=== PATIENT | female | born 1965 | race Caucasian/White ===

== ENCOUNTER 2020-05-31 00:24 | Outpatient (CLI) | payer OTHER, SELFPAY ==
[2020-05-31 08:53] LABS: Abs Immature Grans 0.05 10^3/uL (0.0-0.06); Absolute Basophil Count 0.07 10^3/uL (0.0-0.2); Absolute Eosinophil Count 0.34 10^3/uL (0.0-0.7); Absolute Lymphocyte Count 1.96 10^3/uL (1.2-3.4); Absolute Monocyte Count 0.38 10^3/uL (0.1-0.8); Eosinophils % 4.8; HCT 38.6 % (36.0-46.0); HGB 12.8 g/dL (11.2-15.7); Immature Grans % 0.7; Lymphocytes % 27.6; MCH 29.4 pg (27.0-33.0); MCHC 33.2 % (32.0-36.0); MCV 88.7 fL (80-95); MPV 10.2 fL (8.0-11.0); Monocytes % 5.4; Neutrophils % 60.5; Nucleated RBC 0 %; Platelet Count 211 10^3/uL (130-400); RBC 4.35 10^6/uL (3.93-5.22); RDW 13.2 % (11.7-14.6); RDW-SD 42.5 fL
[2020-05-31 09:45] LABS: ALT 24 U/L (14-59); AST 17 U/L (15-37); Albumin 3.7 g/dL (3.4-5.0); Alkaline Phosphatase 68 U/L (46-116); Anion Gap 7.5 mmol/L (3-11); BUN 8 mg/dL (7-18); Bilirubin, Total 0.4 mg/dL (0.2-1.0); CO2 27.5 mmol/L (21.0-32.0); CREATININE 0.91 mg/dL (0.55-1.02); Calcium 8.7 mg/dL (8.5-10.1); Chloride 105 mmol/L (98-107); Glucose 105 mg/dL (74-106); Sodium 140 mmol/L (136-145)
[2020-06-03 16:31] LABS: Calculated LDL 89 mg/dL (<100); Cholesterol 191 mg/dL (<200); HDL Cholesterol 39 mg/dL (40-60); Triglyceride 316 mg/dL (<150)
[2020-06-03 16:32] LABS: Hemoglobin A1C 6.1 % (<5.7)
== END 2020-05-31 00:44 ==
PROVIDERS: PCP Nurse Practitioner Adult Health; Visit Provider Nurse Practitioner Family
DX: R73.03 Prediabetes (principal); E78.89 Other lipoprotein metabolism disorders; R05 Cough; R11.0 Nausea; R94.31 Abnormal electrocardiogram [ECG] [EKG]; Z82.49 Family history of ischemic heart disease and other diseases of the circulatory system; R07.89 Other chest pain; J02.9 Acute pharyngitis, unspecified
CPT/HCPCS: 36415; 80053; 80061; 83036; 85025

== ENCOUNTER 2020-05-31 01:08 | Outpatient (CLI) | payer OTHER, SELFPAY ==
--- NOTE | 2020-05-31 06:30 | DI.NM_ITS ---
APPROVED REPORT Exam: Pharmacologic Patient Location: Out-Patient Room/Bed: Stress Nurse: Dian Stephen RN BMI: 36.34 Baseline Rhythm: Sinus Rhythm Comment: occasional PVC Indications: Burning chest pain, abnormal EKG, and family h/o CAD. Medical History Medical History: Prediabetes. Cardiac Medications: None. Allergies: Morphine, Codeine, Hydrocodone, Oxycodone, Propoxyphene, Aspirin, Acetaminophen, ,Omeprazo le, Meperidine. Cardiac Risk Factors: FHX of CAD Previous Cardiac Procedures: None. Pretest Chest Pain Characteristics: No chest pain Exercise History: Sedentary, Indeterminate Physical Disabilities: Legs Lung Sounds: Clear to auscultation Heart Sounds: Regular Stress Test Details Test: Pharmacologic stress testing performed using 0.4 mg of regadenoson per 5 mL given IV over 10 s econds. Reason for pharmacologic stress test: physical limitation. Nuclear Acquisition: Rest Tc-99m/Stress Tc-99m 1 day Rest Isotope: Tc-99m Sestamibi. Dose: 12.8 Date: 05/31/2020 Injection Time: 0915 Stress Isotope: Tc-99m Sestamibi. Dose: 35.2 Date: 05/31/2020 Injection Time: 1105 HR Resting HR Supine: 75 bpm Max Heart Rate (APMHR): 164.102323 bpm Target HR (85% APMHR): 139.431944 bpm Max HR Achieved: 110 bpm % of APMHR: 67.07 Recovery HR: 81 bpm BP Resting BP Supine: 160/92 mmHg Max BP: 160/92 mmHg Recovery BP: 148/84 mmHg ECG Resting ECG: Sinus Rhythm Ectopy: occasional unifocal PVC Stress ECG: Sinus Tachycardia ST Change: no significant ST segment changes noted. Arrhythmia: PVCs, Trigeminy Recovery ECG: Sinus Rhythm Recovery ST Change: no significant ST segment changes noted. Recovery Arrhythmia: PVCs. Clinical Stress Symptoms: Dyspnea, Headache Stress ECG Conclusion 1. The resting electrocardiogram showed a borderline nonspecific interventricular conduction delay 2. This was a pharmacologic myocardial perfusion imaging study. Patient received regadenoson. Peak heart rate was 67% of predicted for age 3. Electrocardiographically the test was nondiagnostic due to inadequate heart rate 4. Sporadic premature ventricular contractions were seen Stress Test Summary STAGE HR BP Symptoms NOTES Supine 75 160/92 1 min post Lexiscan injection 105 154/82 SOB, BRAND 3 min post Lexiscan injection 100 150/80 BRAND 6 min post Lexiscan injection 81 148/84 No symptoms MPI Conclusion No evidence of myocardial ischemia or prior infarction Radiologist Interpretation Radiologist Interpretation by: Cristino Mi MD Interpretation Date/Time: 06/01/2020 16:04:50
--- NOTE | 2020-05-31 08:51 | DI.RAD_ITS ---
EXAM: XR CHEST 2V PA LATERAL CLINICAL HISTORY: BURNING CHEST PAIN,SORE THROAT,FAMILY H/O CAD,COUGH,R05,R07.89 TECHNIQUE: 2D digital imaging was performed. COMPARISON: No exams were available for comparison FINDINGS: MEDIASTINUM: Normal. HEART: Normal. PULMONARY VASCULATURE: Normal. LUNGS: Clear. PLEURAL SPACE: No pleural effusion or pneumothorax. BONE:Within normal limits for the patient's age. OTHER FINDINGS:Normal. IMPRESSION: No acute pulmonary findings. DATA REPOSITORY: RADIATION DOSE DELIVERED:
[2020-05-31] MEDS: Regadenoson 0.4 MG/5 ML SYR IVP (11:14)
== END 2020-05-31 01:28 ==
PROVIDERS: PCP Nurse Practitioner Adult Health; Visit Provider Nurse Practitioner Family
DX: J02.9 Acute pharyngitis, unspecified (principal); R05 Cough; R07.89 Other chest pain; Z82.49 Family history of ischemic heart disease and other diseases of the circulatory system; R94.31 Abnormal electrocardiogram [ECG] [EKG]
CPT/HCPCS: 78452; 93016; 93018; 71046; 93017; J2785

== ENCOUNTER → 2020-06-27 15:11 | Outpatient (REF) | payer OTHER, SELFPAY ==
--- NOTE | 2020-06-27 13:30 | PAPFT_PTH ---
PATIENT: Shima Ewing LOC: [facility] U#:[id number] AGE/SX: 60/F ROOM: RE06/27/[address]: Evelyn Anton APRN : 1965 BED: DIS: SPEC #: [id number] RECD: 06/27/20 18:29 STATUS: JENARO BURLESON #: [id number] ERNESTO: 06/27/20 13:[address]: Evelyn Anton DEPT: [facility] Cytology RECD BY: Yasmeen Hall Tissues: 1 - CX/ENDOCX FOR PAP SMEARS Procedures: PAP THIN PREP/UVM Screening HPV DNA PROBE Comments: [id number]
== END ==
LOC: LBN 15:11
PROVIDERS: PCP Nurse Practitioner Adult Health; Visit Provider Nurse Practitioner Adult Health
DX: Z12.4 Encounter for screening for malignant neoplasm of cervix (principal); Z11.51 Encounter for screening for human papillomavirus (HPV)
CPT/HCPCS: 88142; 87624

== ENCOUNTER 2021-07-12 01:39 | Outpatient (CLI) | payer MEDICARE, MEDICAID, SELFPAY ==
--- NOTE | 2021-07-12 08:15 | DI.MAMMO_ITS ---
Exam(s) MAMMO SCREENING EXAM: MAMMO SCREENING CLINICAL HISTORY: screening,z12.39 TECHNIQUE: Bilateral full field digital CC and MLO mammographic images were obtained with 3D tomosyn thesis and utilizing computer aided detection (CAD). COMPARISON: Available for comparison. FINDINGS: Masses/Architectural Distortion: None seen. Microcalcifications: No suspicious pleomorphic-type are seen. Skin Thickening/Nipple Retraction: None. There is increased density in the axillary tail region of the left breast on the MLO view. This view should be repeated. IMPRESSION: 1. There is an overall increased density in the axillary tail region of the left breast. 2. The left MLO view should be repeated. BI-RADS Category 0 - Assessment Incomplete: Need additional imaging evaluation Breast Density - Category B - Scattered areas of fibroglandular density Breast density category C or D implies that the patient has dense breast tissue. Dense breast tissue is very common and is not abnormal but dense breast tissue can make it harder to find cancer on a ma mmogram. Also, dense breast tissue may increase their breast cancer risk. This information about the result of the mammogram report was provided to the patient to raise their awareness. Use this report when you speak with the patient about their risks for breast cancer, which includes their family hist ory. At that time, you may recommend for more screening tests (Ultrasound or MRI) as they might be us eful based on their risk. A negative radiographic report should not delay biopsy if a dominant or clinically suspicious mass is present. Up to ten percent of cancers are not identified on mammography. A negative report may reinforce clinical impression. Adenosis and dense breasts may obscure an underlying neoplasm. False positive reports average 6 to 10%. Patient will receive a letter notifying them of these results.
== END 2021-07-12 01:59 ==
PROVIDERS: PCP Nurse Practitioner Adult Health; Visit Provider Nurse Practitioner Adult Health
DX: Z12.31 Encounter for screening mammogram for malignant neoplasm of breast (principal); R92.8 Other abnormal and inconclusive findings on diagnostic imaging of breast
CPT/HCPCS: 77063; 77067

== ENCOUNTER 2021-07-12 02:56 | Outpatient (CLI) | payer MEDICARE, MEDICAID, SELFPAY ==
[2021-07-12 14:27] LABS: Hemoglobin A1C 6.3 % (<5.7)
[2021-07-12 15:34] LABS: ALT 26 U/L (14-59); AST 15 U/L (15-37); Albumin 3.6 g/dL (3.4-5.0); Alkaline Phosphatase 65 U/L (46-116); Anion Gap 7.7 mmol/L (3-11); BUN 10 mg/dL (7-18); Bilirubin, Total 0.3 mg/dL (0.2-1.0); CO2 27.3 mmol/L (21.0-32.0); CREATININE 0.8 mg/dL (0.55-1.02); Calcium 8.5 mg/dL (8.5-10.1); Calculated LDL 107 mg/dL (<100); Chloride 106 mmol/L (98-107); Cholesterol 184 mg/dL (<200); Glucose 96 mg/dL (74-106); HDL Cholesterol 47 mg/dL (40-60); Sodium 141 mmol/L (136-145); TSH (W/Ref FT4) 3.36 uIU/mL (0.36-3.74); Total Protein 6.9 g/dL (6.4-8.2); Triglyceride 150 mg/dL (<150)
== END 2021-07-12 02:57 | disposition home or self-care (01) ==
LOC: LBO 02:56
PROVIDERS: PCP Nurse Practitioner Adult Health; Visit Provider Nurse Practitioner Adult Health
DX: R73.03 Prediabetes (principal); E78.1 Pure hyperglyceridemia; E66.9 Obesity, unspecified
CPT/HCPCS: 36415; 80053; 80061; 83036; 84443

== ENCOUNTER 2021-07-17 21:15 | Outpatient (REF) | payer MEDICARE, MEDICAID, SELFPAY ==
[2021-07-17 22:15] LABS: C-Reactive Protein 0.39 mg/dL (0.0-0.3)
== END 2021-07-17 21:16 | disposition home or self-care (01) ==
LOC: LBN 21:15
PROVIDERS: PCP Nurse Practitioner Adult Health; Visit Provider Family Medicine
DX: M25.473 Effusion, unspecified ankle (principal)
CPT/HCPCS: 86140

== ENCOUNTER 2022-07-31 10:13 | Emergency (ER) | payer MEDICARE, SELFPAY ==
--- NOTE | 2022-07-31 10:15 | DI.RAD_ITS ---
Exam(s) XR SHOULDER RT COMPLETE 2+V EXAM: XR SHOULDER RT COMPLETE 2+V CLINICAL HISTORY: Fall, R/O Fracture. TECHNIQUE: 2D digital imaging was performed of the right shoulder. Five images were obtained. AP, Grashey, Y-view and axillary views were obtained. COMPARISON: CR XR CHEST 2V PA LATERAL from 05/31/2020 FINDINGS: BONES: No acute fracture is present. No bony destructive lesion is seen. JOINTS: No dislocation present. Degenerative changes are seen at the acromioclavicular joint. SOFT TISSUE: Normal. IMPRESSION: No acute fracture or dislocation. DATA REPOSITORY: RADIATION DOSE DELIVERED:
--- NOTE | 2022-07-31 10:15 | DI.RAD_ITS ---
Exam(s) XR HUMERUS RT EXAM: XR HUMERUS RT CLINICAL HISTORY: Fall, R/O Fracture. TECHNIQUE: 2D digital imaging was performed of the right humerus. Three images were obtained. AP a nd lateral views were obtained. COMPARISON: No exams were available for comparison FINDINGS: BONES: No acute fracture is present. No bony destructive lesion is seen. Visualized portion of elbow and shoulder joints are unremarkable. SOFT TISSUE: Normal. IMPRESSION: No acute fracture or dislocation. DATA REPOSITORY: RADIATION DOSE DELIVERED:
[2022-07-31 10:17] VITALS: BP 142/105; PULSE 65; RESP 18; TEMP 37.1; O2SAT 98
--- NOTE | 2022-07-31 10:27 | W.ED.GENAD ---
Discharge Plan Disposition Patient Disposition: Home Condition: Stable Discharge Details Clinical Impression: Sprain of right upper arm Primary Care Provider: Evelyn Anton ED Provider: Juana Reyna Home Meds and New Rx's Prescriptions: Continued metronidazole [Metrogel] 1 % gel 1 applic topical DAILY PRN (Reason: rosacea) Qty: 60 0RF Rx Instructions: Best to use daily x8-9weeks, then stop, repeat PRN for papular rosacea. famotidine 20 mg tablet 20 mg PO DAILY PRN (Reason: heartburn) Qty: 90 3RF Rx Instructions: Heartburn PRN (DME) Blood Glucose Test Strip See Rx Instructions .MEDSUPPLY Qty: 100 3RF Rx Instructions: As directed to check blood glucose daily. No insulin. Dispense covered brand. (DME) blood-glucose meter Misc See Rx Instructions .MEDSUPPLY Qty: 1 0RF Rx Instructions: As directed to check blood glucose daily. No insulin. Dispense covered brand. (DME) lancets Misc See Rx Instructions .MEDSUPPLY Qty: 100 3RF Rx Instructions: As directed to check blood glucose daily. No insulin. Dispense covered brand. pregabalin [Lyrica] 25 mg capsule See Rx Instructions PO HS MDD 75mg/24h Qty: 90 3RF Rx Instructions: 25mg HS nightly, but may take up to 25mg TID PRN LLE peripheral neuropathy orally Excedrin Migraine 250-250-65 mg tablet See Rx Instructions PO ONCE Rx Instructions: TAKE 2 TABLETS IN A 24 HR PERIOD FOR MIGRAINE BRAND'S acetaminophen [Tylenol Extra Strength] 500 mg tablet 1,000 mg PO Q8H PRN cholecalciferol (vitamin D3) 1,000 UNITS tablet 2,000 units PO Discharge Instructions Instructions: Shoulder Sprain (ED) Additional Instructions: At this time x-ray showed no evidence of fracture or dislocation. Please wear the sling as needed for over the next few days for comfort. Please do take the sling off and do some light stretches as tolerated. Rest, ice, compression, elevation. Please take Tylenol or Ibuprofen with food every 4-6 hours as needed for pain and swelling. Follow up with primary care provider in 3-5 days. Return to ED sooner if any worsening or concerns. Increase oral fluids. Referrals: MacEvelyn Medina NP [Primary Care Provider] - 1 week Discharge Data Discharge Date/Time-TO BE ENTERED AT DEPARTURE: 07/31/22 12:03 Medical Decision Making X-ray right shoulder and humerus ordered. I did offer patient some she refused at this time. X-ray shoulder and humerus show no acute fracture dislocation or some degenerative changes noted in the shoulder. Patient given a sling and instructed on home care verbalized understanding. This text was generated using iCenteraation system, please disregard any oddities of phrase or misspellings. Imaging Data Radiologic Study: Imaging: X-Ray Radiologist's impression: EXAM:? XR HUMERUS RT CLINICAL HISTORY: ? Fall, R/O Fracture.? TECHNIQUE:? 2D digital imaging was performed of the right humerus.? Three images were obtained.? AP and lateral views were obtained. COMPARISON:? No exams were available for comparison FINDINGS: BONES: No acute fracture is present. No bony destructive lesion is seen. Visualized portion of elbow and shoulder joints are unremarkable. SOFT TISSUE: Normal. IMPRESSION: No acute fracture or dislocation.? HPI General Mode of arrival: ambulatory. Date/Time Provider Initiated Documentation: 07/31/22 10:15. Limitations to Documentation: no limitations. Information obtained by: patient, RN notes reviewed and old records reviewed. HPI Narrative: 57-year-old female presents to the ER with chief complaint of right shoulder and right upper arm pain status post a mechanical fall yesterday. Patient reports that she tripped falling onto her right side. She denies any neck pain or head injury no loss of consciousness. She reports that she took some Tylenol last night which provided little to no relief. No obvious deformity or swelling noted distal pulses CMS is intact. Denies any elbow pain or wrist pain. No other associated symptoms or injuries noted. Past medical history includes migraines, heartburn, insomnia. Related Data Home Medications Medication Instructions Recorded Confirmed cholecalciferol (vitamin D3) 25 2,000 units PO 12/31/12 07/20/22 mcg (1,000 unit) tablet acetaminophen 500 mg tablet 1,000 mg PO Q8H PRN 04/18/20 07/31/22 (Tylenol Extra Strength) [id number] 250 See Rx Instructions PO ONCE 04/18/20 07/31/22 mg-250 mg-65 mg tablet (Excedrin Migraine) metronidazole 1 % topical gel 1 applic topical DAILY PRN rosacea 07/03/21 07/31/22 (Metrogel) #60 grams blood sugar diagnostic (Blood #100 ea 10/27/21 07/20/22 Glucose Test strips) blood-glucose meter #1 ea 10/27/21 07/20/22 famotidine 20 mg tablet 20 mg PO DAILY PRN heartburn #90 10/27/21 07/20/22 tabs lancets #100 ea 10/27/21 07/20/22 pregabalin 25 mg capsule (Lyrica) See Rx Instructions PO HS LLE 02/23/22 07/31/22 peripheral neuropathy #90 caps Previous Rx's Medication Instructions Recorded metronidazole 1 % topical gel 1 applic topical DAILY PRN rosacea 07/03/21 (Metrogel) #60 grams blood sugar diagnostic (Blood #100 ea 10/27/21 Glucose Test strips) blood-glucose meter #1 ea 10/27/21 famotidine 20 mg tablet 20 mg PO DAILY PRN heartburn #90 10/27/21 tabs lancets #100 ea 10/27/21 pregabalin 25 mg capsule (Lyrica) See Rx Instructions PO HS LLE 02/23/22 peripheral neuropathy #90 caps Allergies Allergy/AdvReac Type Severity Reaction Status Date / Time acetaminophen [From Roxicet] AdvReac Panic Verified 07/31/22 11:16 Attacks aspirin [From Percodan] AdvReac Nausea/Vomi Verified 07/31/22 11:16 ting codeine AdvReac Nausea/Vomi Verified 07/31/22 11:16 ting hydrocodone AdvReac Nausea/Vomi Verified 07/31/22 11:16 ting meperidine [From Demerol] AdvReac Nausea/Vomi Verified 07/31/22 11:16 ting morphine AdvReac Nausea/Vomi Verified 07/31/22 11:16 ting omeprazole [From Prilosec] AdvReac Nausea Verified 07/31/22 11:16 oxycodone [From Roxicet] AdvReac Panic Verified 07/31/22 11:16 Attacks propoxyphene AdvReac Nausea/Vomi Verified 07/31/22 11:16 [From Darvocet-N] ting General Stated Complaint: Orthopedic BERTRAND: 4 Review of Systems All systems reviewed & are unremarkable except as noted in HPI and below ENT Ears, Nose, Mouth, and Throat: Denies neck pain Musculoskeletal Musculoskeletal: Reports as per HPI, Denies abnormal gait, Denies back pain, Reports arthralgias, Reports limited range of motion, Denies loss of height and Denies neck pain Neurologic Neurologic: Denies abnormal gait [facility] All Active Problems (Updated 07/31/22 @ 11:47 by Juana Reyna NP) Sprain of right upper arm (Acute) Acne rosacea, papular type (Chronic) RX Metrogel--effective IBS (irritable bowel syndrome) (Chronic) diarrhea predominant; self-manages with food Post-traumatic stress disorder, unspecified (Chronic) [facility] [place] counselor Obesity (Chronic) Hypertriglyceridemia (Chronic) Peripheral neuropathy (Chronic) LLE s/p 2009 (knee replacement), 2011, 2012 femur fracture; Lyrica 05/2020 very effective Prediabetes (Chronic) 6.3% 06/2021. 6.1%, 05/2020 Medical History Bright red rectal bleeding Stable CBC; hemoccult cards x3 NEG 2014 normal colonscopy Fracture, radius (~2006) Grief reaction , Cristino, 10/2017 Heartburn H2 abi History of femur fracture (~2012) Left, Pinned and Plated (02/2013) Insomnia Migraine Excedrin Migraine Right knee pain [facility] (s/p L knee issues with them remotely & they manage) Surgical History History of bilateral oophorectomy 1992, 1994 History of cholecystectomy (~2004) History of elbow surgery (~2000) Tennis Elbow History of knee replacement Left Knee (2010), Replaced again 11/2011 Family History Father Substance abuse Sister Substance abuse Anxiety Depression Mother Diabetes Heart disease Hypertension Sister No problems noted. Social History Smoking/Tobacco Use Status: Never Smoking risk assessment performed?: Yes Alcohol Intake: current Alcohol Intake frequency: holidays/special occasions only Drug use: Never Substance use type: does not use Adopted: No Caregiver/Support person: No Foster care: No Household members: significant other Housing: house Number of Children: 0 Communication Needs: None Education Level: high school Details: graduated Do you need help understanding health information?: Rarely current occupation: disabled Pets and animals: Yes Pets and animals: dog(s) Sexually active: No Do you think of yourself as: straight/heterosexual Current gender identity: female What is your relationship status?: living with partner How often do you talk on the phone with friends or family?: once per week How often do you get together with friends or relatives?: never How often do you attend jainism or anglican services?: 1-3 times per year Do you belong to any clubs or organized social groups?: no Panel score (0-1 are the most socially isolated patients): 1 What type of physical activity do you participate in: none and walking Duration: 30-45 minutes/day Frequency: 3-4 times per week Sravani/Evangelical: Baptist Special sravani needs: No Seatbelt use: always Helmet use: Yes Drive intox or ride w/intox school bus driver/mechanic: No Do you feel safe at home: Yes Do you feel safe in your relationship?: Yes Exam Narrative Exam Narrative: General: Well Developed, Awake and Alert, conversant. Skin: Warm and Dry HEENT: Head: No palpable deformities, Normocephalic Eyes: Pupils PERRLA, EOM's intact. No periorbital eccymosis or step off Ears: Canal patent. Tympanic membranes are clear . No segovia's sign, no hemptympanum. Nose/Face: Atraumatic. Facial bones nontender to palpation and stable with manipulation. Mouth/Throat: No intraoral trauma. Teeth and mandible are intact. Neck: No midline tenderness, no step off, no deformity to palpation of C-spine. Trachea midline. Chest: No surface trauma. Nontender without crepitus or deformity. Lungs clear to ausculatation bilaterally. Heart: RRR, no rubs, murmurs or gallop. Abdomen: No abrasions, ecchymosis, or surface trauma. Nondistended. Nontender to palpation no guarding, rebound, or rigidity. Pelvis: Nontender to palpation and stable to compression. Femoral pulses strong and equal Extremities: no surface trauma. Sensation intact. Peripheral pulses intact and equal. Tenderness with palpation to right anterior humerus and distal humerus. No obvious deformity. Neuro: ANO x4, GCS 15, cranial nerves II through XII intact. Motor and sensory exam nonfocal. Reflexes are symmetric. Course Vital Signs Vital signs: Vital Signs Temperature 37.1 C 07/31/22 10:17 Pulse 65 07/31/22 10:17 Respiratory Rate 18 07/31/22 10:17 Blood Pressure 142/105 H 07/31/22 10:17 Pulse Oximetry 98 07/31/22 10:17 Temperature 37.1 C 07/31/22 10:17 Temperature Source Temporal Artery Scan 07/31/22 10:17 Pulse 65 07/31/22 10:17 Respiratory Rate 18 07/31/22 10:17 Blood Pressure 142/105 H 07/31/22 10:17 Blood Pressure Position Sitting 07/31/22 10:17 Pulse Oximetry 98 07/31/22 10:17 Oxygen Delivery Method Room Air 07/31/22 10:17 Oxygen Flow Rate 0 07/31/22 10:17 Pain Level 6 07/31/22 10:17
[2022-07-31 12:01] VITALS: BP 131/78; PULSE 60; RESP 16; TEMP 36.5; O2SAT 99
--- NOTE | 2022-08-01 07:48 | NUR.NOTE ---
Nursing Note: Accessed chart for [facility] billing purposes.
== END 2022-07-31 12:03 | disposition home or self-care (01) ==
PROVIDERS: Emergency Provider Registered Nurse Emergency; PCP Nurse Practitioner Adult Health
DX: S43.401A Unspecified sprain of right shoulder joint, initial encounter (principal); Z79.82 Long term (current) use of aspirin; W01.0XXA Fall on same level from slipping, tripping and stumbling without subsequent striking against object, initial encounter
CPT/HCPCS: 99284; 73030; 73060; 99282

== ENCOUNTER 2022-08-17 01:22 | Outpatient (CLI) | payer MEDICARE, SELFPAY ==
[2022-08-17 09:56] LABS: Anion Gap 6.3 mmol/L (3-11); BUN 21 mg/dL (7-18); CO2 28.7 mmol/L (21.0-32.0); CREATININE 0.8 mg/dL (0.55-1.02); Calcium 9.2 mg/dL (8.5-10.1); Calculated LDL 91 mg/dL (<100); Chloride 105 mmol/L (98-107); Cholesterol 158 mg/dL (<200); Estimated GFR 85.35 (mL/min/1.73m2); Glucose 103 mg/dL (74-106); HDL Cholesterol 54 mg/dL (40-60); Potassium 3.9 mmol/L (3.5-5.1); Sodium 140 mmol/L (136-145); Triglyceride 69 mg/dL (<150)
== END 2022-08-17 01:23 | disposition home or self-care (01) ==
LOC: LBO 01:22
PROVIDERS: PCP Nurse Practitioner Adult Health; Visit Provider Nurse Practitioner Adult Health
DX: E78.1 Pure hyperglyceridemia (principal); R73.03 Prediabetes; E66.09 Other obesity due to excess calories; Z68.37 Body mass index [BMI] 37.0-37.9, adult
CPT/HCPCS: 36415; 80048; 80061

== ENCOUNTER 2022-08-21 01:31 | Outpatient (CLI) | payer MEDICARE, SELFPAY ==
--- NOTE | 2022-08-21 07:45 | DI.MAMMO_ITS ---
Exam(s) MAMMO SCREENING EXAM: MAMMO SCREENING CLINICAL HISTORY: screening,z12.39 TECHNIQUE: Bilateral full field digital CC and MLO mammographic images were obtained with 3D tomosyn thesis and utilizing computer aided detection (CAD). COMPARISON: Available for comparison. FINDINGS: Masses/Architectural Distortion: None seen. Microcalcifications: No suspicious pleomorphic-type are seen. Skin Thickening/Nipple Retraction: None. IMPRESSION: 1. No significant interval change with no specific features of malignancy noted. 2. Unless there is more urgent need, screening mammography is recommended, as per [place] [employer] guidelines. BI-RADS Category 1 - Negative Breast Density - Category B - Scattered areas of fibroglandular density Breast density category C or D implies that the patient has dense breast tissue. Dense breast tissue is very common and is not abnormal but dense breast tissue can make it harder to find cancer on a ma mmogram. Also, dense breast tissue may increase their breast cancer risk. This information about the result of the mammogram report was provided to the patient to raise their awareness. Use this report when you speak with the patient about their risks for breast cancer, which includes their family hist ory. At that time, you may recommend for more screening tests (Ultrasound or MRI) as they might be us eful based on their risk. A negative radiographic report should not delay biopsy if a dominant or clinically suspicious mass is present. Up to ten percent of cancers are not identified on mammography. A negative report may reinforce clinical impression. Adenosis and dense breasts may obscure an underlying neoplasm. False positive reports average 6 to 10%. Patient will receive a letter notifying them of these results.
== END 2022-08-21 01:51 ==
LOC: DI 01:31
PROVIDERS: PCP Nurse Practitioner Adult Health; Visit Provider Nurse Practitioner Adult Health
DX: Z12.31 Encounter for screening mammogram for malignant neoplasm of breast (principal)
CPT/HCPCS: 77063; 77067

== ENCOUNTER 2023-01-21 14:52 | Outpatient (CLI) | payer MEDICARE, SELFPAY ==
--- NOTE | 2023-01-21 14:45 | RT.EKG_ITS ---
APPROVED REPORT Exam: Resting ECG Reason for Exam: a-fib Patient Location: O HR:101 bpm ECG Measurements Heart Rate 101 AXIS HI [id number] P [id number] QRSd 128 QRS 12 QT 410 T 48 QTc 532 Conclusion Atrial flutter...A-rate 288 Ventricular premature complex...V complex w/ short R-R interval Nonspecific intraventricular conduction delay...QRSd >115mS, not LBBB/RBBB Minimal ST elevation, inferior leads...ST >0.06mV, II III aVF
== END 2023-01-21 14:53 | disposition home or self-care (01) ==
PROVIDERS: PCP Nurse Practitioner Adult Health; Visit Provider Emergency Medicine
DX: I48.91 Unspecified atrial fibrillation (principal); Z82.49 Family history of ischemic heart disease and other diseases of the circulatory system
CPT/HCPCS: 93010

== ENCOUNTER 2023-04-25 16:25 | Emergency (ER) | payer MEDICARE, SELFPAY ==
[2023-04-25 16:33] VITALS: BP 168/74; PULSE 61; RESP 18; TEMP 37
--- NOTE | 2023-04-25 16:58 | W.ED.GENAD ---
Discharge Plan Disposition Patient Disposition: Home Condition: Stable Discharge Details Clinical Impression: Biliary colic Primary Care Provider: Evelyn Anton ED Provider: Juana Reyna Home Meds and New Rx's Prescriptions: Continued metronidazole [Metrogel] 1 % gel 1 applic topical DAILY PRN (Reason: rosacea) Qty: 60 0RF Rx Instructions: Best to use daily x8-9weeks, then stop, repeat PRN for papular rosacea. famotidine 20 mg tablet 20 mg PO DAILY PRN (Reason: heartburn) Qty: 90 3RF Rx Instructions: Heartburn PRN (DME) Blood Glucose Test Strip See Rx Instructions .MEDSUPPLY Qty: 100 3RF Rx Instructions: As directed to check blood glucose daily. No insulin. Dispense covered brand. (DME) blood-glucose meter Misc See Rx Instructions .MEDSUPPLY Qty: 1 0RF Rx Instructions: As directed to check blood glucose daily. No insulin. Dispense covered brand. (DME) lancets Misc See Rx Instructions .MEDSUPPLY Qty: 100 3RF Rx Instructions: As directed to check blood glucose daily. No insulin. Dispense covered brand. Joint X One (hyaluronic acid) PO DAILY Patient Comments: Joint pain, neuropathy diltiazem HCl [Cartia XT] 240 mg capsule,extended release 24hr 240 mg PO QAM Qty: 90 2RF Excedrin Migraine 250-250-65 mg tablet See Rx Instructions PO ONCE Rx Instructions: TAKE 2 TABLETS IN A 24 HR PERIOD FOR MIGRAINE BRAND'S acetaminophen [Tylenol Extra Strength] 500 mg tablet 1,000 mg PO Q8H PRN cholecalciferol (vitamin D3) 25 mcg (1,000 unit) tablet 3,000 unit PO DAILY Discharge Instructions Instructions: Abdominal Pain (ED) Additional Instructions: At this time no acute abnormality identified. The common bile duct was slightly dialated. Practice a bland diet. Please stay away from anything fried, fatty, or dairy. Follow up with primary care provider in 3-5 days. Return to ED sooner if any worsening or concerns. Increase oral fluids. Please take Tylenol or Ibuprofen with food every 4-6 hours as needed for pain and swelling. Take the nausea medication as directed. Referrals: Evelyn Anton, [employer] CURATOR [Primary Care Provider] - 3 days Medical Decision Making 57-year-old female presents to the ER with a chief complaint of upper back pain which radiates into the front midepigastric area which began on Saturday. It is intermittent and waxes and wanes. Associated with nausea and diaphoresis and clamminess. She reports that she woke it 2 AM on Saturday morning and then again yesterday morning and this morning around 5 AM. She reports feeling nauseated all day. She denies any dysuria or problems urinating. Denies any chest pain. She does have a past medical history of some rectal bleeding, heartburn insomnia migraine surgical history includes oophorectomy bilaterally, cholecystectomy. Work-up ordered including CBC CMP troponin EKG lipase and urinalysis. CT abdomen pelvis shows no acute abnormality identified does have a dilated common bile duct. Labs are noted below. We will have patient follow-up with PCP and GI if needed. Discussed work-up results with patient who verbalized understanding. This text was generated using [employer] system, please disregard any oddities of phrase or misspellings. Imaging Data Radiologic Study: Imaging: CT Scan Radiologist's impression: EXAM: CT ABDOMEN PELVIS W CLINICAL HISTORY: Midepigastric pain, nausea. TECHNIQUE: Imaging Protocol: Axial computed tomography images with coronal and sagittal reformatted images were created and reviewed CONTRAST MATERIAL: Intravenous: Omnipaque 350 Contrast volume:100 ml Oral: yes COMPARISON: CT,NM,TMT NM MPI REST STRESS GRP from 05/31/2020 FINDINGS: ABDOMEN: Lung Bases: Normal where visualized. Liver: Normal density. No measurable mass. Gallbladder and biliary tract: Status post cholecystectomy. No radiodense calculus. Dilatation of the common bile duct and intrahepatic ducts with tapering into the pancreatic head. Findings are likely post cholecystectomy reservoir fact. Pancreas: Normal density, no abnormal calcifications or inflammatory process. Spleen: Normal. Kidneys: Normal size, contour and axis. No radiodense stones or obstructive uropathy. No suspicious masses seen. Adrenal glands: No masses seen. Vasculature: Abdominal aorta non-dilated. Soft tissues: Unremarkable. PELVIS: Bladder: Nearly empty. Not well evaluated. Bowel: None moderate to increased quantity of stool throughout the colon. No obstruction. No bowel wall thickening. Appendix normal. Peritoneal cavity: No ascites, collection or mesenteric inflammatory response. Bones: Unremarkable for age. Reproductive organs: Uterus deviated to right. Lymph nodes: Unremarkable. IMPRESSION:: Status post cholecystectomy. Dilatation of the common bile duct and and mild intrahepatic biliary dilatation likely secondary to prior cholecystectomy. No acute abnormality identified. Lab Data Lab results reviewed: Yes I reviewed the patient's lab results. Labs: 04/25/23 18:00 Urine - Reflex from Ua Urine Culture - Pending Laboratory Tests Range/Units 04/25/23 04/25/23 04/25/23 17:09 17:09 18:00 WBC (4.4-10.8) 10^3/uL 7.23 RBC (3.93-5.22) 10^6/uL 4.45 Hgb (11.2-15.7) g/dL 12.7 Hct (36.0-46.0) % 38.6 MCV (80-95) fL 87 MCH (27.0-33.0) pg 28.5 MCHC (32.0-36.0) % 32.9 RDW (11.7-14.6) % 13.2 Plt Count (130-400) 10^3/uL 216 MPV (8.0-11.0) fL 10.2 Immature Gran % 0.6 Neutrophils % 61.9 Lymphocytes % 26.1 Monocytes % 7.1 Eosinophils % 3.3 Basophils % 1.0 Nucleated RBC % (0.0-0.3) % 0.0 Absolute Neutrophils (1.2-6.7) 10^3/uL 4.48 Absolute Lymphocytes (1.2-3.4) 10^3/uL 1.89 Absolute Monocytes (0.1-0.8) 10^3/uL 0.51 Absolute Eosinophils (0.0-0.7) 10^3/uL 0.24 Absolute Basophils (0.0-0.2) 10^3/uL 0.07 Sodium (136-145) mmol/L 138 Potassium (3.5-5.1) mmol/L 3.5 Chloride (98-107) mmol/L 102 Carbon Dioxide (21.0-32.0) mmol/L 27.1 Anion Gap (3-11) mmol/L 8.9 BUN (7-18) mg/dL 12 Creatinine (0.55-1.02) mg/dL 0.7 Est GFR (CKD-EPI 2020) (mL/min/1.73m2) 100.19 Glucose (74-106) mg/dL 95 Calcium (8.5-10.1) mg/dL 9.3 Magnesium (1.8-2.4) mg/dL 1.9 Total Bilirubin (0.2-1.0) mg/dL 0.5 AST (15-37) U/L 46 H ALT (14-59) U/L 55 Alkaline Phosphatase (46-116) U/L 97 Troponin I (<or=60) ng/L < 50 Total Protein (6.4-8.2) g/dL 8.1 Albumin (3.4-5.0) g/dL 3.7 Lipase (16-77) U/L 33 Urine Color (Yellow) Yellow Urine Clarity (Clear) Clear Urine pH (5-8) 6.0 Ur Specific [place] (1.005-1.025) 1.015 Urine Protein (Negative) mg/dL Negative Urine Ketones (Negative) mg/dL Negative Urine Blood (Negative) Trace-lysed H Urine Nitrite (Negative) Negative Urine Bilirubin (Negative) Negative Urine Urobilinogen (Up to 0.2) mg/dL 0.2 Ur Leukocyte Esterase (Negative) Trace H Urine RBC (0-2) HPF 0-2 Urine WBC (0-5) HPF 3-5 Ur Epithelial Cells (Negative) HPF Rare Urine Crystals (Negative) HPF Negative Urine Bacteria (Negative) HPF Few Urine Casts (Negative) LPF Negative Urine Mucus (Negative) Negative Ur Culture Indicated? Yes Urine Glucose (Negative) mg/dL Negative HPI General Mode of arrival: ambulatory. Date/Time Provider Initiated Documentation: 04/25/23 16:41. Limitations to Documentation: no limitations. Information obtained by: patient, RN notes reviewed and old records reviewed. HPI Narrative: 57-year-old female presents to the ER with a chief complaint of upper back pain which radiates into the front midepigastric area which began on Saturday. It is intermittent and waxes and wanes. Associated with nausea and diaphoresis and clamminess. She reports that she woke it 2 AM on Saturday morning and then again yesterday morning and this morning around 5 AM. She reports feeling nauseated all day. She denies any dysuria or problems urinating. Denies any chest pain. She does have a past medical history of some rectal bleeding, heartburn insomnia migraine surgical history includes oophorectomy bilaterally, cholecystectomy. Related Data Home Medications Medication Instructions Recorded Confirmed acetaminophen 500 mg tablet 1,000 mg PO Q8H PRN 04/18/20 04/25/23 (Tylenol Extra Strength) [id number] 250 See Rx Instructions PO ONCE 04/18/20 04/25/23 mg-250 mg-65 mg tablet (Excedrin Migraine) metronidazole 1 % topical gel 1 applic topical DAILY PRN rosacea 07/03/21 04/25/23 (Metrogel) #60 grams blood sugar diagnostic (Blood #100 ea 10/27/21 04/25/23 Glucose Test strips) blood-glucose meter #1 ea 10/27/21 04/25/23 famotidine 20 mg tablet 20 mg PO DAILY PRN heartburn #90 10/27/21 04/25/23 tabs lancets #100 ea 10/27/21 04/25/23 Joint X One (hyaluronic acid) PO DAILY 08/23/22 04/25/23 cholecalciferol (vitamin D3) 25 3,000 unit PO DAILY 10/24/22 04/25/23 mcg (1,000 unit) tablet diltiazem HCl 240 mg 240 mg PO QAM #90 caps 01/21/23 04/25/23 capsule,extended release 24 hr (Cartia XT) Previous Rx's Medication Instructions Recorded metronidazole 1 % topical gel 1 applic topical DAILY PRN rosacea 07/03/21 (Metrogel) #60 grams blood sugar diagnostic (Blood #100 ea 10/27/21 Glucose Test strips) blood-glucose meter #1 ea 10/27/21 famotidine 20 mg tablet 20 mg PO DAILY PRN heartburn #90 10/27/21 tabs lancets #100 ea 10/27/21 diltiazem HCl 240 mg 240 mg PO QAM #90 caps 01/21/23 capsule,extended release 24 hr (Cartia XT) Allergies Allergy/AdvReac Type Severity Reaction Status Date / Time acetaminophen [From Roxicet] AdvReac Panic Verified 04/25/23 17:12 Attacks aspirin [From Percodan] AdvReac Nausea/Vomi Verified 04/25/23 17:12 ting codeine AdvReac Nausea/Vomi Verified 04/25/23 17:12 ting hydrocodone AdvReac Nausea/Vomi Verified 04/25/23 17:12 ting meperidine [From Demerol] AdvReac Nausea/Vomi Verified 04/25/23 17:12 ting morphine AdvReac Nausea/Vomi Verified 04/25/23 17:12 ting omeprazole [From Prilosec] AdvReac Nausea Verified 04/25/23 17:12 oxycodone [From Roxicet] AdvReac Panic Verified 04/25/23 17:12 Attacks propoxyphene AdvReac Nausea/Vomi Verified 04/25/23 17:12 [From Darvocet-N] ting General Stated Complaint: Abd Prob BERTRAND: 3 Review of Systems All systems reviewed & are unremarkable except as noted in HPI and below Gastrointestinal Gastrointestinal: Reports abdominal pain and Reports nausea PFSH All Active Problems (Updated 04/25/23 @ 18:59 by Juana Reyna NP) Biliary colic (Acute) Atrial flutter (Acute) Family history of heart disease in male family member before age 55 (Acute) Family history of heart disease in female family member before age 65 (Acute) A-fib (Chronic) Right shoulder pain (Acute) secondary to impingment syndrone Acne rosacea, papular type (Chronic) RX Metrogel--effective IBS (irritable bowel syndrome) (Chronic) diarrhea predominant; self-manages with food Post-traumatic stress disorder, unspecified (Chronic) [facility] Obesity (Chronic) Hypertriglyceridemia (Chronic) Peripheral neuropathy (Chronic) LLE s/p 2009 (knee replacement), 2011, 2012 femur fracture; Lyrica 05/2020 very effective Prediabetes (Chronic) 6.3% 06/2021. 6.1%, 05/2020 Medical History Bright red rectal bleeding Stable CBC; hemoccult cards x3 NEG 2014 normal colonscopy Fracture, radius (~2006) Grief reaction , Cristino, 10/2017 Heartburn H2 abi History of femur fracture (~2012) Left, Pinned and Plated (02/2013) Insomnia Migraine Excedrin Migraine Right knee pain [facility] [place], [place] Ortho (s/p L knee issues with them remotely & they manage) Surgical History History of bilateral oophorectomy 1992, 1994 History of cholecystectomy (~2004) History of elbow surgery (~2000) Tennis Elbow History of knee replacement Left Knee (2010), Replaced again 11/2011 Family History Father Substance abuse Sister Substance abuse Anxiety Depression Mother Diabetes Heart disease Hypertension Sister No problems noted. Social History Smoking/Tobacco Use Status: Never Smoking risk assessment performed?: Yes Alcohol Intake: current Alcohol Intake frequency: holidays/special occasions only Drug use: Never Substance use type: does not use Adopted: No Caregiver/Support person: No Foster care: No Household members: significant other Housing: house Number of Children: 0 Communication Needs: None Education Level: high school Details: graduated Do you need help understanding health information?: Rarely current occupation: disabled Pets and animals: Yes Pets and animals: dog(s) Sexually active: No Do you think of yourself as: straight/heterosexual Current gender identity: female What is your relationship status?: living with partner How often do you talk on the phone with friends or family?: once per week How often do you get together with friends or relatives?: never How often do you attend jew or episcopalian services?: 1-3 times per year Do you belong to any clubs or organized social groups?: no Panel score (0-1 are the most socially isolated patients): 1 What type of physical activity do you participate in: none and walking Duration: 30-45 minutes/day Frequency: 3-4 times per week Sravani/Islam: Christianity Special sravani needs: No Seatbelt use: always Helmet use: Yes Drive intox or ride w/intox tractor trailer truck driver: No Do you feel safe at home: Yes Do you feel safe in your relationship?: Yes Exam Narrative Exam Narrative: Constitutional: Alert and oriented x3. Appears stated age. Normal body habitus. Head: Normocephalic, no trauma. Eyes: Pupils PERRL, Red reflex noted, EOM's intact. Eyelids symmetrical without lesions, discharge, or swelling. ENT: Bilateral TM's WNL, External ear normal to inspection, no mastoid TTP, swelling, or erythema, Nasal turbinates WNL, no nasal discharge. Normal dentition, Posterior pharynx WNL, no exudate. Chest: RRR, Normal S1, S2, distal pulses intact. Resp: Lungs clear to auscultation bilaterally, no wheezes, rales, or rhonchi. Abdomen: Soft, non-distended, Normoactive bowel sounds all 4 quads. Musculoskeletal: Normal gait, 5/5 strength to all four extremities. Skin: No suspicious rashes or lesions. Capillary refill less than 2 sec. Neurologic: Cranial nerves II-XII intact. Alert and oriented x 3. Motor: No deficits noted. Sensory: Intact bilaterally all 4 extremities. Reflexes: DTR's intact bilaterally.. Hematologic/Lymphatic: No ecchymosis, no lymphadenopathy. Course Vital Signs Vital signs: Vital Signs Temperature 37.0 C 04/25/23 16:33 Pulse 61 04/25/23 16:33 Respiratory Rate 18 04/25/23 16:33 Blood Pressure 168/74 H 04/25/23 16:33 Temperature 37.0 C 04/25/23 16:33 Pulse 61 04/25/23 16:33 Respiratory Rate 18 04/25/23 16:33 Blood Pressure 168/74 H 04/25/23 16:33 Blood Pressure Position Sitting 04/25/23 16:33 Oxygen Delivery Method Room Air 04/25/23 16:33 Oxygen Flow Rate 0 04/25/23 16:33 Pain Level 0 04/25/23 16:33
--- NOTE | 2023-04-25 17:00 | DI.CT_ITS ---
Exam(s) CT ABDOMEN PELVIS W EXAM: CT ABDOMEN PELVIS W CLINICAL HISTORY: Midepigastric pain, nausea. TECHNIQUE: Imaging Protocol: Axial computed tomography images with coronal and sagittal reformatted images were created and reviewed CONTRAST MATERIAL: Intravenous: Omnipaque 350 Contrast volume:100 ml Oral: yes COMPARISON: CT,NM,TMT NM MPI REST STRESS GRP from 05/31/2020 FINDINGS: ABDOMEN: Lung Bases: Normal where visualized. Liver: Normal density. No measurable mass. Gallbladder and biliary tract: Status post cholecystectomy. No radiodense calculus. Dilatation of th e common bile duct and intrahepatic ducts with tapering into the pancreatic head. Findings are likel y post cholecystectomy reservoir fact. Pancreas: Normal density, no abnormal calcifications or inflammatory process. Spleen: Normal. Kidneys: Normal size, contour and axis. No radiodense stones or obstructive uropathy. No suspicious m asses seen. Adrenal glands: No masses seen. Vasculature: Abdominal aorta non-dilated. Soft tissues: Unremarkable. PELVIS: Bladder: Nearly empty. Not well evaluated. Bowel: None moderate to increased quantity of stool throughout the colon. No obstruction. No bowel wall thickening. Appendix normal. Peritoneal cavity: No ascites, collection or mesenteric inflammatory response. Bones: Unremarkable for age. Reproductive organs: Uterus deviated to right. Lymph nodes: Unremarkable. IMPRESSION:: Status post cholecystectomy. Dilatation of the common bile duct and and mild intrahepa tic biliary dilatation likely secondary to prior cholecystectomy. No acute abnormality identified. RADIATION DOSE DELIVERED: 1,430.71mGy.cm Total DLP DATA REPOSITORY: All CT scans at this facility are submitted to the National Radiology Data Registry (NRDR) Dose Index Registry (DIR) with the [employer] (ACR). RADIATION OPTIMIZATION: All CT scans at this facility use at least one of these dose optimization te chniques: automated exposure control; mA and/or kV adjustment per patient size (includes targeted exa ms where dose is matched to clinical indication); or iterative reconstruction.
--- NOTE | 2023-04-25 17:00 | RT.EKG_ITS ---
APPROVED REPORT Exam: Resting ECG Reason for Exam: Midepigastric pain Patient Location: E HR:59 bpm ECG Measurements Heart Rate 59 AXIS NM 164 P -12 QRSd 106 QRS 9 QT 474 T 21 QTc 466 Conclusion Sinus bradycardia...rate< 60 Atrial premature complex...SV complex w/ short R-R interval Low voltage, precordial leads...precordial leads <1.0mV sinus bradycardia, PAC, nonischemic
[2023-04-25 17:23] LABS: Abs Immature Grans 0.04 10^3/uL (0.0-0.06); Absolute Basophil Count 0.07 10^3/uL (0.0-0.2); Absolute Eosinophil Count 0.24 10^3/uL (0.0-0.7); Absolute Lymphocyte Count 1.89 10^3/uL (1.2-3.4); Absolute Monocyte Count 0.51 10^3/uL (0.1-0.8); Absolute Neutrophil Count 4.48 10^3/uL (1.2-6.7); Eosinophils % 3.3; HCT 38.6 % (36.0-46.0); HGB 12.7 g/dL (11.2-15.7); Immature Grans % 0.6; Lymphocytes % 26.1; MCH 28.5 pg (27.0-33.0); MCHC 32.9 % (32.0-36.0); MCV 87 fL (80-95); MPV 10.2 fL (8.0-11.0); Monocytes % 7.1; Neutrophils % 61.9; Platelet Count 216 10^3/uL (130-400); RBC 4.45 10^6/uL (3.93-5.22); RDW 13.2 % (11.7-14.6); RDW-SD 41.5 fL; WBC 7.23 10^3/uL (4.4-10.8)
[2023-04-25 17:46] LABS: ALT 55 U/L (14-59); AST 46 U/L (15-37); Albumin 3.7 g/dL (3.4-5.0); Alkaline Phosphatase 97 U/L (46-116); Anion Gap 8.9 mmol/L (3-11); BUN 12 mg/dL (7-18); Bilirubin, Total 0.5 mg/dL (0.2-1.0); CO2 27.1 mmol/L (21.0-32.0); CREATININE 0.7 mg/dL (0.55-1.02); Calcium 9.3 mg/dL (8.5-10.1); Chloride 102 mmol/L (98-107); Estimated GFR 100.19 (mL/min/1.73m2); Glucose 95 mg/dL (74-106); Lipase 33 U/L (16-77); Magnesium 1.9 mg/dL (1.8-2.4); Potassium 3.5 mmol/L (3.5-5.1); Sodium 138 mmol/L (136-145); Total Protein 8.1 g/dL (6.4-8.2); Troponin I < 50 ng/L (<or=60)
[2023-04-25 18:09] LABS: Bilirubin Negative (Negative); Blood Trace-lysed (Negative); Clarity Clear (Clear); Glucose Negative (Negative); Ketones Negative (Negative); Leukocyte Esterase Trace (Negative); Nitrite Negative (Negative); Specific Gravity 1.015 (1.005-1.025); Urobilinogen 0.2 mg/dL (Up to 0.2)
[2023-04-25] MEDS: Normal Saline - Diluent 50 ML VIAL IJ (18:09)
[2023-04-25] MEDS: Omnipaque 350 MG/ML 100 ML BTL IJ (18:10)
[2023-04-25 18:20] LABS: Bacteria Few HPF (Negative); C & S Indicated? Yes; Casts Negative LPF (Negative); Crystals Negative HPF (Negative); Epithelial Cells Rare HPF (Negative); Mucus Negative (Negative); RBC 0-2 HPF (0-2)
[2023-04-25] MEDS: Normal Saline 500 ML IV (18:35)
[2023-04-25 19:35] VITALS: BP 132/61; PULSE 58; RESP 16; TEMP 37
[2023-04-25] MEDS: Ondansetron O.D.T. 4 MG TABEF, 3 TABS/BTL PO (19:35)
== END 2023-04-25 19:34 | disposition home or self-care (01) ==
PROVIDERS: Emergency Provider Registered Nurse Emergency; PCP Nurse Practitioner Adult Health
DX: K80.50 Calculus of bile duct without cholangitis or cholecystitis without obstruction (principal)
CPT/HCPCS: 80053; 83690; 93005; 96360; 99285; 74177; 81003; 81015; 83735; 84484; 85025; 87086; 93010; 99284; J3490

== ENCOUNTER 2023-07-18 00:50 | Outpatient (CLI) | payer MEDICARE, SELFPAY ==
[2023-07-18 08:05] LABS: Hemoglobin A1C 6.1 % (<5.7)
[2023-07-18 08:11] LABS: BUN 16 mg/dL (7-18); CREATININE 0.9 mg/dL (0.55-1.02); Calcium 8.5 mg/dL (8.5-10.1); Calculated LDL 115 mg/dL (<100); Chloride 105 mmol/L (98-107); Cholesterol 193 mg/dL (<200); Estimated GFR 73.64 (mL/min/1.73m2); Glucose 122 mg/dL (74-106); HDL Cholesterol 57 mg/dL (40-60); Potassium 3.9 mmol/L (3.5-5.1); Sodium 142 mmol/L (136-145); Triglyceride 109 mg/dL (<150)
[2023-07-20 09:32] LABS: Lipoprotein (a) 62 nmol/L (<75)
== END 2023-07-18 00:51 | disposition home or self-care (01) ==
LOC: LBO 00:50
PROVIDERS: Emergency Medicine; PCP Nurse Practitioner Adult Health; Visit Provider Nurse Practitioner Adult Health
DX: Z82.49 Family history of ischemic heart disease and other diseases of the circulatory system (principal); E78.1 Pure hyperglyceridemia; G62.9 Polyneuropathy, unspecified; R73.03 Prediabetes; E66.09 Other obesity due to excess calories; Z68.37 Body mass index [BMI] 37.0-37.9, adult
CPT/HCPCS: 36415; 80048; 80061; 83695; 83036

== ENCOUNTER 2023-07-30 03:48 | Outpatient (CLI) | payer MEDICARE, SELFPAY ==
[2023-07-30 12:42] LABS: Abs Immature Grans 0.03 10^3/uL (0.0-0.06); Absolute Basophil Count 0.06 10^3/uL (0.0-0.2); Absolute Eosinophil Count 0.28 10^3/uL (0.0-0.7); Absolute Lymphocyte Count 1.79 10^3/uL (1.2-3.4); Absolute Monocyte Count 0.31 10^3/uL (0.1-0.8); Absolute Neutrophil Count 3.85 10^3/uL (1.2-6.7); Basophils % 0.9; Eosinophils % 4.4; HCT 37.5 % (36.0-46.0); HGB 12.1 g/dL (11.2-15.7); Immature Grans % 0.5; Lymphocytes % 28.3; MCH 28.6 pg (27.0-33.0); MCHC 32.3 % (32.0-36.0); MCV 89 fL (80-95); MPV 9.9 fL (8.0-11.0); Monocytes % 4.9; Platelet Count 200 10^3/uL (130-400); RBC 4.23 10^6/uL (3.93-5.22); RDW 13.3 % (11.7-14.6); RDW-SD 43.1 fL; WBC 6.32 10^3/uL (4.4-10.8)
[2023-07-30 13:14] LABS: TSH (W/Ref FT4) 2.45 uIU/mL (0.36-3.74)
== END 2023-07-30 03:49 | disposition home or self-care (01) ==
PROVIDERS: Absent Provider Nurse Practitioner Adult Health; PCP Nurse Practitioner Adult Health; Referring Provider Nurse Practitioner Adult Health; Visit Provider Nurse Practitioner Adult Health
DX: R23.2 Flushing (principal)
CPT/HCPCS: 36415; 84443; 85025

== ENCOUNTER → 2023-08-22 03:09 | Outpatient (CLI) | payer MEDICARE, SELFPAY | PROVIDERS: PCP Nurse Practitioner Adult Health; Visit Provider Nurse Practitioner Adult Health | DX: Z12.31 Encounter for screening mammogram for malignant neoplasm of breast (principal); R92.323 Mammographic fibroglandular density, bilateral breasts | CPT/HCPCS: 77063; 77067 ==

== ENCOUNTER 2024-03-16 02:32 | Outpatient (CLI) | payer MEDICARE, SELFPAY ==
--- NOTE | 2024-03-16 11:00 | DI.US_ITS ---
APPROVED REPORT EXAM: Comprehensive 2D, Doppler, and color-flow Echocardiogram Patient Location: Out-Patient Data Analysis Assistant: Javier Steiner RDCS (AE) Indications: PAF Conclusion Normal left ventricular wall thickness and chamber size. Ejection fraction is 60%. Wall motion is n ormal Normal right ventricular size and function Both atria are moderately dilated There are no structural valvular abnormalities Estimated right ventricular systolic pressure is 27 mmHg Ascending aorta measures 3.36 cm Wall motion Left Ventricle The left ventricle is normal size. Left ventricular systolic function is normal. The left ventricular ejection fraction is within the normal range. There is normal left ventricular wall thickness. There is normal LV segmental wall motion. There is no ventricular septal defect visualized. LVEF is 60%. Right Ventricle The right ventricle is normal size. The right ventricular systolic function is normal. Atria Left atrium is moderately dilated. Right atrium is moderately dilated. Aortic Valve The aortic valve is normal in structure. Aortic valve is trileaflet. There is no aortic valvular sten osis. No aortic regurgitation is present. Mitral Valve The mitral valve is normal in structure. No evidence of mitral valve stenosis. Trace mitral regurgita tion. Tricuspid Valve The tricuspid valve is normal in structure. There is no tricuspid valve stenosis. Trace tricuspid reg urgitation. The RVSP is 27.3 mmHg. Pulmonic Valve The pulmonary valve is normal in structure. There is no pulmonic valvular stenosis. Trace pulmonic re gurgitation. Great Vessels The aortic root is normal in size. The ascending aorta is mildly dilated. Aortic arch is not well vis ualized. IVC is normal in size and collapses >50% with inspiration. Pericardium There is no pericardial effusion. 2D Dimensions IVSD d PLAX 0.81 cm F: 0.6-1.0 Ao Root d 3.01 cm F: 2.7 - 3.3 LVPW d PLAX 0.84 cm F: 0.6 - 1.0 Ao Asc Diam d 3.36 cm F: 2.3 - 3.1 LVID d PLAX 5.86 cm F: 3.8 - 5.2 LVDs 4.09 cm F: 2.2 - 3.5 LV EF Teichholz 56.9 % FS 30.29 % LV EDV (Teich) 170.7 mL LV ESV (Teich) 73.6 mL Stroke Vol Index (Teich) 42.37 M-Mode TAPSE 2.61 cm (M/F) >1.7 Auto EF LV EDV A4C 159.3 mL LV EDV A2C 193.4 mL LV EDV BP 175.4 mL LV ESV A4C 68.9 mL LV ESV A2C 77.6 mL LV ESV BP 72.7 mL LVEF(%) A4C 56.7 % LVEF(%) A2C 59.9 % LVEF(%) BP 58.6 % LV SV A4C 90.4 ml LV SV A2C 115.8 ml LV SV BP 102.7 ml LV CO A4C 6.3 L/min LV CO A2C 7.6 L/min LV CO BP 7.0 L/min HR A4C 69.77 BPM HR A2C 66.06 BPM LV EDV Index (BP) LA Volume LA Length A4C 4.6 cm LA Length A2C 5.4 cm LA Area A4C s 13.69 cm2 LA Area A2C s 23.55 cm2 LA Vol A4C A-L 34.70 mL LA Vol A2C A-L 86.95 mL LA Vol Biplane A-L 59.7 mL LA Vol/BSA A4C A-L LA Vol/BSA A2C A-L LA Vol/BSA BP A-L 26.1 mL/m2 LA Vol A4C MOD 31.5 mL LA Vol A2C MOD 78.8 mL LA Vol BP MOD 53.9 mL RA Volume RA Area A4C 16.5 cm2 RA ESV A4C (A-L) 44.1mL RA Vol/BSA A4C A-L RA Length A4C 5.2 cm RA ESV A4C (MOD) 42.3mL LV Diastology MV E' medial 0.122 (>0.07 m/s) MV E Vmax 0.94 (0.4-1.3 m/s) MV E/E' MED 7.75 (<14) MV A Vmax 0.75 (0.4-1.3 m/s) MV E' lateral 0.133 (>0.1 m/s) E/A Ratio 1.3 MV E/E' LAT 7.08 (<14) MV E' Average 0.128 m/s MV E/E'(average) 7.40 Aortic Valve AoV Vmax 1.18 m/s LVOT Vmax 1.08 m/s AoV Peak Grad 5.6 mmHg LVOT Peak Grad 4.7 mmHg AoV Area (Vmax) 2.79 cm2 LVOT VTI 0.246 m AoV VTI 0.289 m LVOT Mean Grad 2.6 mmHg AoV Mean Douglas. 0.84 m/s LVOT SV 75.04 mL AoV Mean Grad 3.1 mmHg LVOT Diam s 1.95 cm AoV Area (VTI) 2.59 cm2 AV Regurg Peak Gr. 5.58 mmHg Velocity Ratio 0.92 Mitral Valve MV DT 97 (160-240 msec) MV Vmax TIPS 0.96 m/s MV Mean Grad 1.5 (<2mmHg) MV VTI 0.327 m Pulmonary Valve PV Vmax 1.05 (0.5-1.5 m/s) RVOT Vmax 0.61 m/s PV Peak Grad 4.4 mmHg RVOT Peak Gr. 1.5 mmHg PV Mean Douglas 0.79 m/s RVOT VTI 0.150 m PV Mean Grad 2.8 mmHg RVOT Mean Gr. 0.9 mmHg Tricuspid Valve RA Pressure 3.00 mmHg TR Vmax 2.46 m/s TR Peak Grad 24.2 mmHg RVSP (TR) 27.3 mmHg
== END 2024-03-16 02:52 ==
LOC: DI 02:32
PROVIDERS: PCP Nurse Practitioner Adult Health; Visit Provider Nurse Practitioner Acute Care
DX: I48.0 Paroxysmal atrial fibrillation (principal)
CPT/HCPCS: 93306

== ENCOUNTER 2024-07-24 13:38 | Outpatient (CLI) | payer MEDICARE, SELFPAY ==
[2024-07-24 09:18] LABS: Hemoglobin A1C 6.1 % (<5.7)
[2024-07-24 09:31] LABS: Anion Gap 6.9 mmol/L (3-11); BUN 21 mg/dL (7-18); CO2 29.1 mmol/L (21.0-32.0); CREATININE 0.9 mg/dL (0.55-1.02); Calcium 9.1 mg/dL (8.5-10.1); Calculated LDL 104 mg/dL (<100); Chloride 105 mmol/L (98-107); Cholesterol 183 mg/dL (<200); Estimated GFR 73.19 (mL/min/1.73m2); Glucose 125 mg/dL (74-106); HDL Cholesterol 52 mg/dL (40-60); Potassium 4.1 mmol/L (3.5-5.1); Sodium 141 mmol/L (136-145); Triglyceride 139 mg/dL (<150)
[2024-07-26 12:56] LABS: Lipoprotein (a) 65 nmol/L (<75)
== END 2024-07-24 13:39 | disposition home or self-care (01) ==
LOC: LBO 13:38
PROVIDERS: PCP Nurse Practitioner Adult Health; Visit Provider Nurse Practitioner Adult Health
DX: R73.03 Prediabetes (principal); E66.09 Other obesity due to excess calories; Z68.37 Body mass index [BMI] 37.0-37.9, adult; E78.1 Pure hyperglyceridemia; Z82.49 Family history of ischemic heart disease and other diseases of the circulatory system
CPT/HCPCS: 36415; 80048; 80061; 83695; 83036

== ENCOUNTER 2024-08-25 00:11 | Outpatient (CLI) | payer MEDICARE, SELFPAY ==
--- NOTE | 2024-08-25 15:47 | DI.MAMMO_ITS ---
Exam(s) MAMMO SCREENING EXAM: MAMMO SCREENING CLINICAL HISTORY: screening,z12.39 TECHNIQUE: Mammograms were interpreted according to the usual protocol including computer analysis w [employer] CAD system, tomosynthesis and C-view imaging. COMPARISON: 2017 through 2023 FINDINGS: The breasts are composed of mainly fatty density , Breast Density category A. No suspicious masses or suspicious microcalcifications are seen. No skin thickening or abnormal axillary lymph nodes are seen. There has been no significant change from prior exams. IMPRESSION: BI-RADS Category 1, Negative mammogram Yearly screening mammography is recommended. Breast Density - Category A, fatty density. A negative radiographic report should not delay biopsy if a dominant or clinically suspicious mass is present. Up to ten percent of cancers are not identified on mammography. A negative report may reinforce clinical impression. Adenosis and dense breasts may obscure an underlying neoplasm. False positive reports average 6 to 10%. Patient will receive a letter notifying them of these results.
== END 2024-08-25 00:31 ==
LOC: DI 00:11
PROVIDERS: PCP Nurse Practitioner Adult Health; Visit Provider Nurse Practitioner Adult Health
DX: Z12.31 Encounter for screening mammogram for malignant neoplasm of breast (principal); R92.323 Mammographic fibroglandular density, bilateral breasts
CPT/HCPCS: 77063; 77067

== ENCOUNTER 2025-01-11 16:28 | Outpatient (REF) | payer MEDICARE, SELFPAY | END 2025-01-11 16:29 | disposition home or self-care (01) | LOC: LBN 16:28 | PROVIDERS: PCP Nurse Practitioner Adult Health; Visit Provider Family Medicine | DX: R30.0 Dysuria (principal) | CPT/HCPCS: 87086 ==

== ENCOUNTER 2025-01-25 15:44 | Outpatient (REF) | payer MEDICARE, SELFPAY ==
[2025-01-25 21:40] LABS: Glucose Negative (Negative)
[2025-01-25 21:47] LABS: WBC 20-50 HPF (0-5)
== END 2025-01-25 15:45 | disposition home or self-care (01) ==
LOC: LBN 15:44
PROVIDERS: PCP Nurse Practitioner Adult Health; Visit Provider Nurse Practitioner Adult Health
DX: R30.0 Dysuria (principal)
CPT/HCPCS: 81003; 81015; 87086